=== PATIENT | male | born 1970 | race African-American/Black ===

== ENCOUNTER 2021-05-04 09:28 | Emergency (ER) | payer OTHER ==
[2021-05-04 10:39] LABS: HEMOGLOBIN 15.9 gm/dl (14.0-17.5); RED BLOOD COUNT 5.59 M/UL (4.20-5.50); WHITE BLOOD COUNT 6.9 K/UL (4.5-11.0)
[2021-05-04 11:09] LABS: BUN/CREATININE RATIO 16 (0-10)
== END 2021-05-04 14:35 | disposition home or self-care (01) ==
LOC: ER1 09:28
PROVIDERS: Physician Assistant
DX: E11.65 Type 2 diabetes mellitus with hyperglycemia (principal); R05 Cough; E78.5 Hyperlipidemia, unspecified; F17.200 Nicotine dependence, unspecified, uncomplicated; Z88.1 Allergy status to other antibiotic agents
CPT/HCPCS: 80053; 82009; 82962; 85025; 96374; 99284; J7030